=== PATIENT | female | born 1985 | race Caucasian/White ===

== ENCOUNTER 2017-10-30 23:00 | Emergency (ER) | payer OTHER ==
[~2017-10-30] VITALS: Ht 160 cm; Wt 119.3 kg
[~2017-10-30 23:00] MED LIST: IBUP-103 PO
[2017-10-30 23:08] VITALS: BP 130/88; PULSE 85; TEMP 36.8; O2SAT 97; Ht 160 cm; Wt 119.3 kg
[2017-10-30] MEDS ORDERED: OXYCODONE HCL IR 5 MG TAB (IMMEDIATE RELEASE) PO STA (23:20)
--- NOTE | 2017-10-31 | EMERGENCY ROOM VISIT NOTE ---
History Report prepared by [place]: Minal Summers Under the Supervision of: Dr. Jameel Mckay M.D. First contact with patient: 23:16 Chief Complaint: HAND PAIN/INJURY Stated Complaint: HIT BY FOUL BALL, LEFT HAND/WRIST History of Present Illness The patient is a 32 year old female who presents to the Emergency Room with complaints of an episode of left hand pain starting a few hours ago. The patient states that she was at the [employer] and they were sitting directly behind the first baseline. She states that one of the players hit a foul ball and it went directly up and hit her left hand and left side. She states that she was unable to get up and move since she has a boot on her left foot. She reports that she has been having pain in her wrist that radiates up towards her elbow. She notes that the pain is worse with movement of her wrist. The patient currently rates her pain as a 8/10 in severity. She states that she has been taking Naproxen for her foot with mild relief and last took 12 hours ago. The patient denies the use of blood thinners. Source of History: patient Onset: a few hours ago Position: hand (left) Symptom Intensity: 8/10 Quality: other (radiating) Timing: other (episode) Modifying Factors (Worsening): movement Review of Systems See HPI for pertinent positives & negatives. A total of 6 systems reviewed and were otherwise negative. Past Medical & Surgical Medical Problems: (1) Gestational diabetes mellitus (2) Retained placenta (3) Vaginal delivery Family History Diabetes mellitus FHx: cancer FHx: gallbladder disease FHx: heart disease Hypertension Seizures Social History Smoking Status: Never Smoker Alcohol Use: none Marital Status: Housing Status: lives with family Occupation Status: employed Current/Historical Medications Scheduled PRN Ibuprofen Tab (Advil), 200-600 MG PO Q4H PRN for Pain Allergies Coded Allergies: Clavulanic Acid (Verified Allergy, Intermediate, 07/22/15) Indomethacin (Verified Allergy, Intermediate, 07/22/15) Adhesives (Verified Allergy, Mild, RASH, 07/22/15) Tetanus Toxoid (Verified Allergy, Unknown, 07/22/15) Physical Exam Vital Signs Date Time Temp Pulse Resp B/P (MAP) Pulse Ox O2 Delivery O2 Flow Rate FiO2 10/30/17 23:08 36.8 85 18 130/88 97 Room Air Physical Exam GENERAL: Patient is in moderate distress and uncomfortable appearing. RESPIRATORY: No dyspnea. Clear to auscultation and equal bilaterally. No wheeze , no rhonchi. CARDIOVASCULAR: Regular rate and rhythm. No murmurs, rubs, gallops appreciated. EXTREMITIES: No cyanosis, no edema. Tenderness to palpation over the lateral aspect of the left hand. Pain with range of motion of the fifth digit. Normal sensorium. NEUROLOGIC: Alert and oriented, no acute motor or sensory deficits, no focal weakness, cranial nerves grossly intact. SKIN: No rash, no jaundice, no diaphoresis. Medical Decision & Procedures ER Provider Diagnostic Interpretation: 3 VIEW L HAND: The results were interpreted by me. No fracture. No dislocation. No foreign body appreciated. Medications Administered Medications (Trade) Dose Ordered Sig/María Route Start Time Stop Time Status Last Admin Dose Admin Oxycodone HCl (Roxicodone Immediate Rel Tab) 5 mg NOW STAT PO 10/30/17 23:20 10/30/17 23:22 DC 10/30/17 23:34 5 MG ED Course 2317: The patient was evaluated in room C10. A complete history and physical exam was performed. 2320: Ordered Oxycodone HCl 5 mg PO. 2359: Reevaluated the patient and she is feeling better. Discussed results and discharge instructions: She verbalized understanding and agreement. I discussed following up with her PCP if the pain continues and using an JOSH wrap for comfort. The patient is ready for discharge. Medical Decision Differential diagnoses include fracture, dislocation, contusion. 32 yr old with trauma to left hand. No fracture appreciated. Otherwise looks well. RICE treatment. Reviewed follow up with PCP if continued discomfort. Medication Reconcilliation Current Medication List: was personally reviewed by me Blood Pressure Screening Patient's blood pressure: Normal blood pressure Blood pressure disposition: Did not require urgent referral Impression Primary Impression: Contusion of left hand Scribe Attestation The scribe's documentation has been prepared under my direction and personally reviewed by me in its entirety. I confirm that the note above accurately reflects all work, treatment, procedures, and medical decision making performed by me. Departure Information Dispostion Home / Self-Care Referrals Rylee Carrizales D.O. (PCP) Forms HOME CARE DOCUMENTATION FORM, IMPORTANT VISIT INFORMATION Patient Instructions ED Contusion Hand, My [facility]
--- NOTE | 2017-10-31 06:02 | DIAGNOSTIC IMAGING REPORT ---
L HAND MIN 3 VIEWS ROUTINE CLINICAL HISTORY: foul ball to left 5th metacarpal trauma. Pain. COMPARISON: None. DISCUSSION: The bones and joint spaces appear intact. There is no evidence of fracture, dislocation or bony disease. There is no evidence for soft tissue swelling. IMPRESSION: Negative study. The above report was generated using voice recognition software. It may contain grammatical, syntax or spelling errors. Electronically signed by: Esa Farley M.D. 10/31/2017 6:00 AM Dictated Date/Time: 10/31/2017 6:00 AM
== END 2017-10-31 00:37 | disposition home or self-care (01) ==
LOC: C.EDB 23:01 → C.EDC 10-31 00:37
DX: S60.222A Contusion of left hand, initial encounter (principal); W21.03XA Struck by baseball, initial encounter; Z88.8 Allergy status to other drugs, medicaments and biological substances